=== PATIENT | male | born 1955 | race Two or more races ===

== ENCOUNTER → 2017-10-03 | Outpatient (CLI) | payer OTHER ==
--- NOTE | 2017-10-03 18:35 | Diagnostic Imaging Report ---
PROCEDURE:TESTICULAR DOPPLER ULTRASOUND COMPARISON:None. INDICATIONS:HYDROCELE CONCLUSION: Please see previously dictated report under testicular ultrasound performed same date. Adryan Navas M.D. Dictated by: Adryan Navas M.D. on 10/03/2017 at 18:37 Electronically approved by: Adryan Navas M.D. on 10/03/2017 at 18:37
--- NOTE | 2017-10-03 18:35 | Diagnostic Imaging Report ---
PROCEDURE:TESTICULAR ULTRASOUND COMPARISON:None. INDICATIONS:HYDROCELE, "cyst on the right side" per patient TECHNIQUE: Abdul-scale and color doppler images of the testicles and scrotal contents were obtained. Duplex imaging with spectral waveform analysis was performed of the testicular arteries and veins. FINDINGS: RIGHT SCROTUM: Testicle: 5.0 x 2.4 x 3.8 cm. Epididymal head: 0.8 x 0.3 x 0.4 cm. Hydrocele: Multiple cystic, anechoic areas are visualized, surrounding the right testicle, by multiple nonvascular septations, with a few internal echoes suggesting debris, Varicocele: None LEFT SCROTUM: Testicle: 5.0 x 2.7 x 3.0 cm. Epididymal head: 1.2 x 0.8 x 0.5 cm. Hydrocele: Small Varicocele: None. Normal bilateral arterial and venous flow was documented. Overlying scrotal skin is unremarkable. No inguinal hernia is identified. CONCLUSION: 1. Normal bilateral testicular size and echogenicity. Normal arterial and venous flow with low likelihood of torsion. 2. Findings in the right scrotum, likely represent multiloculated hydrocele, likely the result of prior infection or inflammation. A less likely possibility is multiple large epididymal cysts or spermatoceles. 3. Small left hydrocele. Adryan Navas M.D. Dictated by: Adryan Navas M.D. on 10/03/2017 at 18:36 Electronically approved by: Adryan Navas M.D. on 10/03/2017 at 18:36
== END ==
LOC: US 08:47
PROVIDERS: ATTEND Urology
DX: N43.3 Hydrocele, unspecified (principal)
CPT/HCPCS: 76870; 93976